=== PATIENT | female | born 1975 | race Caucasian/White ===

== ENCOUNTER 2018-02-09 08:08 | Emergency (ER) | payer MEDICAID, OTHER ==
[~2018-02-09] VITALS: Ht 160 cm; Wt 77.0 kg
[~2018-02-09 08:08] MED LIST: HYDR12.5 PO
[2018-02-09 09:00] LABS: BASOPHILS # (AUTO) 0.1 X10'3 (0-0.2); EOSINOPHILS # (AUTO) 0.2 X10'3 (0-0.9); HEMATOCRIT 47.8 % (35.0-45.0); HEMOGLOBIN 15.9 g/dl (12.0-16.0); LYMPHOCYTES # (AUTO) 2.5 X10'3 (1.1-4.8); LYMPHOCYTES % (AUTO) 32.1 % (21-51); MEAN CORPUSCULAR HEMOGLOBIN 30.5 PG (27.0-31.0); MEAN CORPUSCULAR HGB CONC 33.3 % (33.0-36.5); MEAN CORPUSCULAR VOLUME 91.7 FL (78-98); MEAN PLATELET VOLUME 8.4 FL (7.4-10.4); MONOCYTES # (AUTO) 0.6 X10'3 (0-0.9); MONOCYTES % (AUTO) 8.1 % (2-12); NEUTROPHILS # (AUTO) 4.4 X10'3 (1.8-7.7); NEUTROPHILS % (AUTO) 56.8 % (42-75); PLATELET COUNT 176 X10'3 (140-440); RED BLOOD COUNT 5.22 X10'6 (4.20-5.60); RED CELL DISTRIBUTION WIDTH 15.7 % (11.5-14.5); WHITE BLOOD COUNT 7.7 X10'3 (4.5-11.0)
[2018-02-09 09:09] LABS: INR 1.1 INR; PROTHROMBIN TIME 11.1 SECONDS (9.0-12.0)
[2018-02-09 09:21] LABS: ALANINE AMINOTRANSFERASE 46 U/L (12-78); ALBUMIN 2.9 G/DL (3.4-5.0); ALBUMIN/GLOBULIN RATIO 0.7 (1.1-1.5); ALKALINE PHOSPHATASE 165 IU/L (46-116); ANION GAP 8 (8-16); ASPARTATE AMINO TRANSFERASE 41 U/L (10-37); BILIRUBIN,TOTAL 0.5 MG/DL (0.1-1.0); BLOOD UREA NITROGEN 19 MG/DL (7-18); BUN/CREATININE RATIO 21.1 (6.6-38.0); CALCIUM 8.9 MG/DL (8.5-10.1); CHLORIDE 106 MMOL/L (99-107); GLUCOSE 106 MG/DL (70-104); SODIUM 142 MMOL/L (135-145); TOTAL CARBON DIOXIDE 27.7 MMOL/L (24-32); eGFR 68 ML/MIN
[2018-02-09 09:24] LABS: POTASSIUM 4.8 MMOL/L (3.5-5.1)
[2018-02-09 09:51] LABS: CLARITY,URINE CLEAR (Clear); COLOR,URINE YELLOW (Yellow); GLUCOSE, URINE NEGATIVE (Neg); KETONES,URINE NEGATIVE (Neg); LEUKOCYTE ESTERASE ,URINE NEGATIVE (Neg); NITRITES, URINE NEGATIVE (Neg); OCCULT BLOOD,URINE SMALL (Neg); PROTEIN,URINE 100 mg/dl (Neg)
[2018-02-09 09:52] LABS: URINE AMPHETAMINE SCREEN POSITIVE (Neg); URINE BARBITUATE SCREEN NEGATIVE (Neg); URINE BENZODIAZEPINES SCREEN NEGATIVE (Neg); URINE CANNABINOID SCREEN NEGATIVE (Neg); URINE COCAINE SCREEN NEGATIVE (Neg); URINE METHADONE SCREEN NEGATIVE (Neg); URINE OPIATE SCREEN NEGATIVE (Neg); URINE PHENCYCLIDINE SCREEN NEGATIVE (Neg)
[2018-02-09 09:55] LABS: UA COLLECTION TYPE CLN CATCH MIDSTREAM
[2018-02-09 09:56] LABS: BACTERIA,URINE FEW /HPF (Neg); MUCUS STRANDS FEW /LPF (Neg); RBC,URINE 0-2 /HPF (0-2); SQUAMOUS EPITHELIAL CELL,UR FEW /LPF (FEW); WBC,URINE 0-4 /HPF (0-4)
[2018-02-09 11:02] LABS: TROPONIN I < 0.04 NG/ML (0.0-0.05)
[2018-02-09] MEDS ORDERED: albuterol 2.5 MG/3 ML nebule NEB STA (12:07)
[2018-02-09 13:18] VITALS: BP 158/117
== END 2018-02-09 13:21 | disposition home or self-care (01) ==
LOC: ER 08:08
DX: J45.909 Unspecified asthma, uncomplicated (principal); F15.10 Other stimulant abuse, uncomplicated; Z79.899 Other long term (current) drug therapy
CPT/HCPCS: 36415; 71045; 80053; 80305; 81001; 84484; 85025; 85610; 93005; 94640; 94760; 99285

== ENCOUNTER 2019-10-29 10:38 | Inpatient (IN) | payer MEDICAID ==
[~2019-10-29] VITALS: Ht 160 cm; Wt 82.3 kg
[2019-10-29 11:31] LABS: BASOPHILS # (AUTO) 0.1 X10'3 (0-0.2); BASOPHILS % (AUTO) 1.8 % (0-1); EOSINOPHILS # (AUTO) 0.1 X10'3 (0-0.9); HEMATOCRIT 46.3 % (35.0-45.0); HEMOGLOBIN 15.3 g/dl (12.0-16.0); LYMPHOCYTES % (AUTO) 19.2 % (21-51); MEAN CORPUSCULAR HEMOGLOBIN 31.9 PG (27.0-31.0); MEAN CORPUSCULAR HGB CONC 33.1 g/dL (33.0-36.5); MEAN CORPUSCULAR VOLUME 96.3 FL (78-98); MEAN PLATELET VOLUME 8.3 FL (7.4-10.4); MONOCYTES # (AUTO) 0.4 X10'3 (0-0.9); MONOCYTES % (AUTO) 7.6 % (2-12); NEUTROPHILS # (AUTO) 3.5 X10'3 (1.8-7.7); NEUTROPHILS % (AUTO) 70.4 % (42-75); PLATELET COUNT 161 X10'3 (140-440); RED BLOOD COUNT 4.81 X10'6 (4.20-5.60); RED CELL DISTRIBUTION WIDTH 16.3 % (11.5-14.5)
[2019-10-29 11:44] LABS: ALANINE AMINOTRANSFERASE 34 U/L (12-78); ALBUMIN 3.3 G/DL (3.4-5.0); ALBUMIN/GLOBULIN RATIO 0.8 (1.1-1.5); ALKALINE PHOSPHATASE 247 IU/L (46-116); AMYLASE 25 U/L (25-115); ANION GAP 6 (8-16); ASPARTATE AMINO TRANSFERASE 37 U/L (10-37); BILIRUBIN,TOTAL 1.5 MG/DL (0.1-1.0); BLOOD UREA NITROGEN 15 MG/DL (7-18); BUN/CREATININE RATIO 17.4 (6.6-38.0); CALCIUM 9.2 MG/DL (8.5-10.1); CHLORIDE 103 MMOL/L (99-107); CREATININE 0.86 MG/DL (0.40-0.90); GLUCOSE 135 MG/DL (70-104); LIPASE 73 U/L (73-393); POTASSIUM 3.4 MMOL/L (3.5-5.1); SODIUM 139 MMOL/L (135-145); TOTAL CARBON DIOXIDE 30.3 MMOL/L (24-32); TOTAL PROTEIN 7.7 G/DL (6.4-8.2); eGFR 71 ML/MIN
[2019-10-29] MEDS ORDERED: furosemide 10 MG/1 ML 10ml inj IV ONE (11:55)
[2019-10-29] MEDS ORDERED: nitroGLYCERIN 0.4mg SUBLingual tab SL PRN (11:55)
[2019-10-29 11:56] LABS: HCG SERUM QL NEGATIVE
[2019-10-29 13:07] LABS: ETHANOL < 0.010 GM/DL (0.0-0.010)
[2019-10-29] MEDS ORDERED: FURO-150 PO (13:13)
[2019-10-29] MEDS ORDERED: magnesium hydroxide 30ml (MOM) UD suspension PO PRN (13:20)
[2019-10-29] MEDS ORDERED: ondansetron/PF 4mg/2ml inj IV PRN (13:20)
[2019-10-29] MEDS ORDERED: acetaminophen 325mg tablet PO PRN (13:20)
[2019-10-29] MEDS ORDERED: mag hydrox/Alum hydrox/simeth 30ml oral suspension PO PRN (13:20)
[2019-10-29 14:24] LABS: CLARITY,URINE CLEAR (Clear); COLOR,URINE STRAW (Yellow); GLUCOSE, URINE NEGATIVE (Neg); KETONES,URINE NEGATIVE (Neg); LEUKOCYTE ESTERASE ,URINE NEGATIVE (Neg); NITRITES, URINE NEGATIVE (Neg); OCCULT BLOOD,URINE TRACE-LYSED (Neg); PH,URINE 7.5 (4.8-8.0); PROTEIN,URINE NEGATIVE (Neg); UROBILINOGEN,URINE 0.2 E.U/dL (0.2-1.0)
[2019-10-29 14:29] LABS: UA COLLECTION TYPE CLN CATCH MIDSTREAM
[2019-10-29 14:42] LABS: BACTERIA,URINE NONE SEEN /HPF (Neg); MUCUS STRANDS NONE SEEN /LPF (Neg); RBC,URINE 0-2 /HPF (0-2); SQUAMOUS EPITHELIAL CELL,UR FEW /LPF (FEW); WBC,URINE 0-4 /HPF (0-4)
[2019-10-29 14:54] LABS: URINE AMPHETAMINE SCREEN NEGATIVE (Neg); URINE BARBITUATE SCREEN NEGATIVE (Neg); URINE BENZODIAZEPINES SCREEN NEGATIVE (Neg); URINE CANNABINOID SCREEN POSITIVE (Neg); URINE COCAINE SCREEN NEGATIVE (Neg); URINE METHADONE SCREEN NEGATIVE (Neg); URINE OPIATE SCREEN NEGATIVE (Neg); URINE PHENCYCLIDINE SCREEN NEGATIVE (Neg)
[2019-10-29 15:07] LABS: URINE HCG NEGATIVE (NEG)
[2019-10-29] MEDS ORDERED: FLU VACC QS2019-20 36MOS UP/PF 60 MCG/0.5 ML SYRINGE IMVAC ONE (15:30)
[2019-10-29] MEDS ORDERED: pneumococcal 23-VAL P-sac vacc 25 mcg/0.5ml vial IMVAC ONE (15:30)
--- NOTE | 2019-10-29 16:00 | NUR ---
Patient in room MED 311. I have received report from Good ROCHA from ER and had the opportunity to ask questions and assume patient care.
--- NOTE | 2019-10-29 16:46 | NUR ---
Pt arrived to room 311 on gurney but able to ambulate from flores to bed w/o difficulty. VS taken and pt on monitor. VS 98.7 T oral, P 95, RR 20, BP 128/90, O2 sats 94 % on room air. Agree with assessment by LINE PATROLMAN that pt;s lungs are CTA diminished in the bases. Heart S1 S2, RRR. Non pitting 2+ edema to bilat LE. Bowel sounds hyperactive and pt states she has had diarrhea today. Abd large, firm, non tender but patient states she has a stomach ache 6/10, she denies chest pain. She was oriented to room, call light, phone, and TV. She has no s/s of distress, she is A&O x4. She jamie other needs except she states hungry and thirsty now. Will continue to monitor.
[2019-10-29] MEDS ORDERED: predniSONE 20 mg tablet PO ONE (17:25)
[2019-10-29 18:00] VITALS: BP 138/83
[2019-10-29] MEDS: ipratropium/albuterol 3ml nebule NEB SCH ×2 (19:30→22:44)
[2019-10-29] MEDS: furosemide 10 MG/1 ML 10ml inj IV SCH (20:11)
[2019-10-29] MEDS: heparin, porcine 5000 units/ml vial SQ SCH (20:11)
[2019-10-29 22:00] VITALS: BP 133/84
[2019-10-30 02:00] VITALS: BP 100/61
[2019-10-30] MEDS: ipratropium/albuterol 3ml nebule NEB SCH ×6 (02:24→23:57)
[2019-10-30 02:56] LABS: BASOPHILS % (AUTO) 0.9 % (0-1); EOSINOPHILS % (AUTO) 0 % (0-6); HEMATOCRIT 46.7 % (35.0-45.0); HEMOGLOBIN 15.8 g/dl (12.0-16.0); LYMPHOCYTES # (AUTO) 0.5 X10'3 (1.1-4.8); LYMPHOCYTES % (AUTO) 10.8 % (21-51); MEAN CORPUSCULAR HEMOGLOBIN 31.7 PG (27.0-31.0); MEAN CORPUSCULAR HGB CONC 33.7 g/dL (33.0-36.5); MEAN PLATELET VOLUME 8.1 FL (7.4-10.4); MONOCYTES # (AUTO) 0.1 X10'3 (0-0.9); MONOCYTES % (AUTO) 2.3 % (2-12); PLATELET COUNT 158 X10'3 (140-440); RED BLOOD COUNT 4.97 X10'6 (4.20-5.60); RED CELL DISTRIBUTION WIDTH 15.6 % (11.5-14.5); WHITE BLOOD COUNT 4.6 X10'3 (4.5-11.0)
[2019-10-30 03:07] LABS: ANION GAP 6 (8-16); BLOOD UREA NITROGEN 12 MG/DL (7-18); BUN/CREATININE RATIO 13.8 (6.6-38.0); CALCIUM 8.9 MG/DL (8.5-10.1); CHLORIDE 101 MMOL/L (99-107); CREATININE 0.87 MG/DL (0.40-0.90); GLUCOSE 229 MG/DL (70-104); POTASSIUM 3.3 MMOL/L (3.5-5.1); SODIUM 136 MMOL/L (135-145); TOTAL CARBON DIOXIDE 29.1 MMOL/L (24-32); eGFR 70 ML/MIN
[2019-10-30 06:00] VITALS: BP 105/67
--- NOTE | 2019-10-30 06:16 | NUR ---
Problems reprioritized. Patient report given to Trey, questions answered & plan of care reviewed with .
--- NOTE | 2019-10-30 06:23 | NUR ---
I have received report from Ismael ROCHA and had the opportunity to ask questions and assume patient care.
[2019-10-30] MEDS ORDERED: magnesium 2GM in 50ml NS 50 ML IV PRN (06:40)
[2019-10-30] MEDS ORDERED: potassium CL 10mEq/100ml bag 100 ML IV PRN (06:40)
[2019-10-30] MEDS ORDERED: potassium Cl 20 mEq SR tablet PO PRN (06:40)
[2019-10-30] MEDS ORDERED: magnesium Cl slow-release 64mg tablet PO PRN (06:40)
[2019-10-30] MEDS ORDERED: magnesium 4gm in 100ml NS 100 ML IV PRN (06:40)
[2019-10-30 06:57] LABS: HEMOGLOBIN A1C 6.6 % (4.5-6.2); MAGNESIUM 1.4 MG/DL (1.5-2.4)
[2019-10-30] MEDS: furosemide 10 MG/1 ML 10ml inj IV SCH (07:47)
[2019-10-30] MEDS: potassium Cl 20 mEq SR tablet PO PRN ×2 (07:47→12:39)
[2019-10-30] MEDS: predniSONE 20 mg tablet PO SCH (07:47)
[2019-10-30] MEDS: heparin, porcine 5000 units/ml vial SQ SCH (07:47)
[2019-10-30] MEDS ORDERED: iohexol 350MG/ML 100ml bottle IV ONE (10:51)
[2019-10-30 11:00] VITALS: BP 116/87
[2019-10-30] MEDS: furosemide 20MG tablet PO SCH ×2 (12:39→22:18)
[2019-10-30 15:00] VITALS: BP 113/76
[2019-10-30 18:00] VITALS: BP 112/83
--- NOTE | 2019-10-30 18:00 | NUR ---
Patient in room MED 311. I have received report from Ghassan ROCHA and had the opportunity to ask questions and assume patient care.
[2019-10-30] MEDS: apixaban 5mg tablet PO SCH (20:00)
[2019-10-30 22:00] VITALS: BP 118/81
[2019-10-31 02:14] LABS: BASOPHILS # (AUTO) 0.1 X10'3 (0-0.2); BASOPHILS % (AUTO) 1.3 % (0-1); EOSINOPHILS # (AUTO) 0.1 X10'3 (0-0.9); EOSINOPHILS % (AUTO) 0.8 % (0-6); HEMATOCRIT 47.6 % (35.0-45.0); LYMPHOCYTES # (AUTO) 1.2 X10'3 (1.1-4.8); LYMPHOCYTES % (AUTO) 17.3 % (21-51); MEAN CORPUSCULAR HEMOGLOBIN 31.4 PG (27.0-31.0); MEAN CORPUSCULAR HGB CONC 33.7 g/dL (33.0-36.5); MEAN CORPUSCULAR VOLUME 93.2 FL (78-98); MEAN PLATELET VOLUME 8.4 FL (7.4-10.4); MONOCYTES # (AUTO) 0.7 X10'3 (0-0.9); MONOCYTES % (AUTO) 9.7 % (2-12); NEUTROPHILS # (AUTO) 4.9 X10'3 (1.8-7.7); NEUTROPHILS % (AUTO) 70.9 % (42-75); PLATELET COUNT 192 X10'3 (140-440); RED BLOOD COUNT 5.11 X10'6 (4.20-5.60); RED CELL DISTRIBUTION WIDTH 15.6 % (11.5-14.5); WHITE BLOOD COUNT 6.9 X10'3 (4.5-11.0)
[2019-10-31 02:18] LABS: ANION GAP 8 (8-16); BLOOD UREA NITROGEN 17 MG/DL (7-18); BUN/CREATININE RATIO 19.8 (6.6-38.0); CHLORIDE 102 MMOL/L (99-107); CREATININE 0.86 MG/DL (0.40-0.90); GLUCOSE 116 MG/DL (70-104); POTASSIUM 3.5 MMOL/L (3.5-5.1); SODIUM 139 MMOL/L (135-145); TOTAL CARBON DIOXIDE 29.2 MMOL/L (24-32)
[2019-10-31 02:19] LABS: ALBUMIN 3.2 G/DL (3.4-5.0); eGFR 71 ML/MIN
[2019-10-31] MEDS: ipratropium/albuterol 3ml nebule NEB SCH ×6 (03:47→22:42)
[2019-10-31 04:42] VITALS: BP 120/58
[2019-10-31 06:00] VITALS: BP 112/77
--- NOTE | 2019-10-31 06:00 | NUR ---
Patient in room MED 311. I have received report from JOSEFINA Crawford and had the opportunity to ask questions and assume patient care.
--- NOTE | 2019-10-31 06:08 | NUR ---
Problems reprioritized. Patient report given, questions answered & plan of care reviewed with HADNY ROCHA.
[2019-10-31 06:47] LABS: MAGNESIUM 1.7 MG/DL (1.5-2.4)
[2019-10-31] MEDS: apixaban 5mg tablet PO SCH ×2 (09:25→21:46)
[2019-10-31] MEDS: furosemide 40mg tablet PO SCH ×3 (09:26→21:46)
[2019-10-31] MEDS: predniSONE 20 mg tablet PO SCH (09:26)
[2019-10-31 11:00] VITALS: BP 112/79
--- NOTE | 2019-10-31 11:00 | NUR ---
pt ambulated by self for 400 feet, no sign of distress.
[2019-10-31 14:45] LABS: ABG BASE EXCESS 4.1 mmol/L (-2.0-3.0); ABG HCO3 28.5 mmol/L (22.0-26.0); ABG OXYGEN SATURATION 94.9 % (95-98); ABG PCO2 (T) 41.9 mmHg (35.0-45.0); ABG PH (T) 7.451 (7.350-7.450); ABG PO2 (T) 78.5 mmHg (83-108); ALLEN'S TEST Positive; FCOHb 0.3 % (0.5-1.5); FLOW 2 L/min; FMetHb 0.2 % (0.3-1.12); FO2Hb 94.4 % (94-100)
[2019-10-31 15:00] VITALS: BP 106/66
--- NOTE | 2019-10-31 15:09 | NUR ---
Reviewed ABG, HCO3 is increasing, possibly due to dehydration since pt is on fluid restriction of 1500 ml and on lasix.
--- NOTE | 2019-10-31 16:11 | NUR ---
Problems reprioritized. Patient report given, questions answered & plan of care reviewed with JOSEFINA Rockwell.
--- NOTE | 2019-10-31 18:15 | NUR ---
Patient in room PCU 3012. I have received report from Luli ROCHA and had the opportunity to ask questions and assume patient care. Patient is resting with friends at bedside.
[2019-10-31 19:00] VITALS: BP 112/80
[2019-10-31 23:00] VITALS: BP 98/62
[2019-11-01 03:00] VITALS: BP 99/66
[2019-11-01] MEDS: ipratropium/albuterol 3ml nebule NEB SCH ×3 (03:06→10:16)
[2019-11-01 05:27] LABS: ALBUMIN 3.2 G/DL (3.4-5.0); ANION GAP 5 (8-16); BLOOD UREA NITROGEN 23 MG/DL (7-18); BUN/CREATININE RATIO 27.7 (6.6-38.0); CHLORIDE 100 MMOL/L (99-107); CREATININE 0.83 MG/DL (0.40-0.90); GLUCOSE 112 MG/DL (70-104); POTASSIUM 3.3 MMOL/L (3.5-5.1); SODIUM 138 MMOL/L (135-145); TOTAL CARBON DIOXIDE 32.6 MMOL/L (24-32); eGFR 74 ML/MIN
[2019-11-01 05:42] LABS: BASOPHILS # (AUTO) 0.1 X10'3 (0-0.2); BASOPHILS % (AUTO) 1.3 % (0-1); EOSINOPHILS % (AUTO) 0.5 % (0-6); HEMATOCRIT 49.1 % (35.0-45.0); HEMOGLOBIN 16.7 g/dl (12.0-16.0); LYMPHOCYTES # (AUTO) 1.3 X10'3 (1.1-4.8); LYMPHOCYTES % (AUTO) 21.6 % (21-51); MEAN CORPUSCULAR HEMOGLOBIN 32.2 PG (27.0-31.0); MEAN CORPUSCULAR VOLUME 94.7 FL (78-98); MEAN PLATELET VOLUME 8.7 FL (7.4-10.4); MONOCYTES # (AUTO) 0.7 X10'3 (0-0.9); MONOCYTES % (AUTO) 10.9 % (2-12); NEUTROPHILS # (AUTO) 4.1 X10'3 (1.8-7.7); NEUTROPHILS % (AUTO) 65.7 % (42-75); PLATELET COUNT 189 X10'3 (140-440); RED BLOOD COUNT 5.19 X10'6 (4.20-5.60); RED CELL DISTRIBUTION WIDTH 15.4 % (11.5-14.5); WHITE BLOOD COUNT 6.2 X10'3 (4.5-11.0)
[2019-11-01 06:00] VITALS: BP 123/68
--- NOTE | 2019-11-01 06:19 | NUR ---
Problems reprioritized. Patient report given, questions answered & plan of care reviewed with Gillian ROCHA.
--- NOTE | 2019-11-01 06:20 | NUR ---
Patient in room PCU 3012. I have received report from Yari ROCHA and had the opportunity to ask questions and assume patient care.
[2019-11-01] MEDS: potassium Cl 20 mEq SR tablet PO PRN (07:46)
[2019-11-01] MEDS: apixaban 5mg tablet PO SCH (07:47)
[2019-11-01] MEDS: predniSONE 20 mg tablet PO SCH (07:47)
[2019-11-01] MEDS: furosemide 40mg tablet PO SCH ×2 (07:47→12:46)
[2019-11-01] MEDS ORDERED: APIX5TAB3 PO (11:21)
[2019-11-01] MEDS ORDERED: ALBU8HFA PO (11:21)
[2019-11-01] MEDS ORDERED: PRED20TA PO (11:21)
[2019-11-01] MEDS ORDERED: FURO40TA4 PO (11:21)
[2019-11-01] MEDS ORDERED: POTA20TA19 PO (11:21)
--- NOTE | 2019-11-01 13:45 | NUR ---
Stable for discharge per MD orders, all d/c instructions reviewed and all questions answered, new prescriptions called into [facility] on [facility], PIV discontinued, Tele monitor discontinued, belongings collected and sent w pt, wheeled to lobby in wheelchair by nurses aide at 1345.
== END 2019-11-01 13:45 | disposition home or self-care (01) | DRG 194 ==
LOC: ER 10:39 → ED HOLD 13:43 → MED 3N 16:20 → PCU 3S 10-31 16:23
PROVIDERS: ADMIT Family Medicine; ATTEND Family Medicine
PROC: BW241ZZ Computerized Tomography (CT Scan) of Chest and Abdomen using Low Osmolar Contrast (ICD-10-PCS; principal; 2019-10-30)
DX: I11.0 Hypertensive heart disease with heart failure (principal); I27.20 Pulmonary hypertension, unspecified; I42.9 Cardiomyopathy, unspecified; I16.0 Hypertensive urgency; I50.23 Acute on chronic systolic (congestive) heart failure; Z86.718 Personal history of other venous thrombosis and embolism; Z87.891 Personal history of nicotine dependence
CPT/HCPCS: 36415; 36600; 71045; 71275; 80048; 80053; 80305; 80320; 81001; 81025; 82150; 82803; 82948; 83036; 83690; 83735; 83880; 84132; 84484; 84703; 85018; 85025; 87081; 90732; 93005; 93306; 94640; 94760; 96374; 99285; G0378; J1644; J1940; J7512; Q2037; Q9967